=== PATIENT | male | born 1995 | race Caucasian/White ===

== ENCOUNTER 2016-07-04 20:13 | Emergency (ER) | payer OTHER, MEDICAID ==
[~2016-07-04] VITALS: Ht 177.8 cm; Wt 75.0 kg
[~2016-07-04 20:13] MED LIST: IBUP600T26 PO; METH750T2 PO
--- NOTE | 2016-07-04 21:25 | PD ---
HPI Stated Complaint: PSYCH EVAL / POPD Time Seen by Provider: 21:21 Travel History International Travel<30 days: No Contact w/Intl Traveler<30days: No History of Present Illness HPI Patient is a 20-year-old male brought in on a Foreman act. Per the report he may suicidal comments to his girlfriend. The patient states that he did say them but it was during an argument and out of anger. This was overheard by the father of his girlfriend who is also Foreman acted. They were at her parents house to get her 2-month-old son and they would not let her see him as she has not been taking her bipolar medications. He states it was not serious and was done in anger. He denies any plans or attempts. He denies a history of psychiatric disorders or suicide attempts. He denies any medical problems chronically or acute medical complaints. He vapes. Occasional social ethanol use, denies illicit drug use. History Social History Alcohol Use: No Tobacco Use: No Allergies-Medications (Allergen,Severity, Reaction): Coded Allergies: No Known Allergies (Verified , 10/30/15) Reported Meds & Prescriptions Reported Meds & Active Scripts Active Robaxin (Methocarbamol) 750 Mg Tab 750 Mg PO Q8HR PRN Ibuprofen 600 Mg Tab 600 Mg PO Q8H PRN Review of Systems General / Constitutional: No: Fever HENT: No: Headaches Cardiovascular: No: Chest Pain or Discomfort Respiratory: No: Shortness of Breath Gastrointestinal: No: Abdominal Pain Psychiatric: No: Anxiety, Depression, Suicidal Ideations, Disorder of Thought, Mood Disorder, Substance Abuse, Homicidal Ideation Physical Exam Narrative GENERAL: Well-developed and well-nourished adult male in no acute distress. SKIN: Warm and dry. Good turgor without tenting. HEAD: Normocephalic and atraumatic. EYES: PERRL bilaterally, 5mm. EOMI bilaterally. No injection or icterus present. No proptosis. Lids without edema or erythema. ENT: Buccal mucosa pink and moist. Oropharynx free of erythema, tonsillar hypertrophy, masses, swelling, asymmetry and exudates. Uvula midline and airway patent. NECK: Supple, no midline tenderness, crepitus or step-offs. Trachea midline, no JVD. No cervical or facial lymphadenopathy. CARDIOVASCULAR: Regular rate and rhythm without murmurs, rubs, clicks or gallops. Radial and posterior tibial pulses 2+ bilaterally. No pedal edema. RESPIRATORY: Clear to auscultation bilaterally with symmetrical rise and fall, no distress or use of accessory muscles. GASTROINTESTINAL: Non-tender, non-distended. Normal bowel sounds all 4 quadrants. No masses or organomegaly present. MUSCULOSKELETAL: No gait disturbances. Patient freely moving all four extremities spontaneously. Extremities without clubbing, cyanosis, or edema. No obvious deformities. NEUROLOGIC: CN II-XII grossly intact. Awake and alert. Motor grossly within normal limits. Normal speech. PSYCHIATRIC: Appropriate mood and affect; insight and judgment normal. Data Data Last Documented VS Vital Signs Date Time Temp Pulse Resp B/P Pulse Ox O2 Delivery O2 Flow Rate FiO2 07/04/16 22:03 65 18 130/84 100 Room Air Orders Complete Blood Count With Diff (07/04/16 21:14) Comprehensive Metabolic Panel (07/04/16 21:14) Drug Screen, Random Urine (07/04/16 21:14) Alcohol (Ethanol) (07/04/16 21:14) Salicylates (Aspirin) (07/04/16 21:14) Tylenol (Acetaminophen) (07/04/16 21:14) Psych Screen (07/04/16 21:14) Labs Laboratory Tests Test 07/04/16 22:20 Urine Opiates Screen NEG Urine Barbiturates Screen NEG Urine Amphetamines Screen NEG Urine Benzodiazepines Screen NEG Urine Cocaine Screen NEG Urine Cannabinoids Screen NEG MDM Medical Decision Making Medical Screen Exam Complete: Yes Emergency Medical Condition: Yes Differential Diagnosis SI versus depression versus anxiety versus bipolar disorder versus schizophrenia versus substance abuse versus mood disorder versus personality disorder versus adjustment disorder Narrative Course Patient is a 20-year-old male brought on a Foreman act after making suicidal comment to his girlfriend. She is also Foreman acted. He reports to me that they were arguing while at her parents house trying to hand picker her 2-month-old child and there was a verbal altercation between all the family. Patient states he called 911 and attempt to be able to obtain the child from the family however the father told the police about her comments and he was subsequently Foreman acted. He denies any ideation or attempts, past or present. He denies history of psychiatric disorders or any medical complaints. He states that it was stated and anger. Ordered labs and psych screening which are pending. Medically cleared pending labs, signed out to Jamaal Salmon PA-C. Diagnosis Primary Impression: Suicidal ideations Condition: Stable Jeff Stoddard III Jul 04, 2016 21:25
[2016-07-04 22:03] VITALS: BP 130/84; PULSE 65; RESP 18; O2SAT 100
[2016-07-04 22:55] LABS: AMPHETAMINE, URINE NEG (NEG); BARBITURATES, URINE NEG (NEG); COCAINE, URINE NEG (NEG)
[2016-07-04 23:36] LABS: AUTOMATED NEUTROPHIL # 5.7 TH/MM3 (1.8-7.7); BASOPHIL # 0.1 TH/MM3 (0-0.2); BASOPHIL % 0.9 % (0.0-2.0); EOSINOPHIL # 0.2 TH/MM3 (0-0.4); EOSINOPHIL % 2.5 % (0.0-4.0); HEMATOCRIT 44.4 % (39.0-51.0); HEMO FLAGS DIFF FINAL; LYMPH % 28.2 % (9.0-44.0); LYMPHOCYTE # 2.6 TH/MM3 (1.0-4.8); MEAN CORPUSCULAR HEMOGLOBIN 27.1 PG (27.0-34.0); MEAN CORPUSCULAR HGB CONC 32.3 % (32.0-36.0); MONO % 6.4 % (0.0-8.0); PLATELET COUNT 316 TH/MM3 (150-450); RED BLOOD COUNT 5.29 MIL/MM3 (4.50-5.90); RED CELL DISTRIBUTION WIDTH 12.4 % (11.6-17.2); WHITE BLOOD COUNT 9.1 TH/MM3 (4.0-11.0)
[2016-07-04 23:55] LABS: ALT (GPT) 27 U/L (9-52); ANION GAP 7 MEQ/L (5-15); AST (GOT) 18 U/L (15-39); BICARBONATE 28.4 MEQ/L (21.0-32.0); BLOOD UREA NITROGEN 7 MG/DL (7-18); CHLORIDE 106 MEQ/L (98-107); GLOMERULAR FILTRATION RATE 101 ML/MIN (>89); SODIUM (NA) 141 MEQ/L (136-145)
[2016-07-04 23:57] LABS: ALKALINE PHOSPHATASE 57 U/L (45-117); TOTAL BILIRUBIN ADULT 0.4 MG/DL (0.2-1.0)
[2016-07-04 23:59] LABS: ACETAMINOPHEN LESS THAN 2.0 MCG/ML (10.0-30.0)
[2016-07-05 02:00] VITALS: BP_SYST 100; BP_SYST 89; BP_DIAS 44; BP_DIAS 60; PULSE 50; RESP 18; O2SAT 98
[2016-07-05 06:16] VITALS: BP 99/65; PULSE 49; RESP 16; O2SAT 100
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
--- NOTE | 2016-07-12 20:53 | PD ---
Data Data Orders Complete Blood Count With Diff (07/04/16 21:14) Comprehensive Metabolic Panel (07/04/16 21:14) Drug Screen, Random Urine (07/04/16 21:14) Alcohol (Ethanol) (07/04/16 21:14) Salicylates (Aspirin) (07/04/16 21:14) Tylenol (Acetaminophen) (07/04/16 21:14) Psych Screen (07/04/16 21:14) MDM Medical Record Reviewed: Yes Supervised Visit with MARII: No Narrative Course I was asked to follow up in this patient's labs for medical clearance for psychiatric evaluation, please see previous providers notes for complete history of present illness. The lab work is unremarkable. The patient has been medically cleared. Diagnosis Primary Impression: Adjustment disorder, unspecified Additional Impressions: Suicidal ideations Medical clearance for psychiatric admission Patient Instructions: General Instructions, Stress (ED), Suicide Prevention for Adults (ED), Medical Clearance for Psychiatric Care (ED) Departure Forms: Tests/Procedures Additional Instruction: Follow up with outpatient primary care provider. Follow up with counseling/Sae Marchman Act [phone]. Return to ER if symptoms worsen. Disposition: 01 DISCHARGE HOME Condition: Stable Jamaal Salmon Jul 12, 2016 20:53
== END 2016-07-05 09:24 | disposition home or self-care (01) ==
LOC: NEPJ 20:13
DX: F91.0 Conduct disorder confined to family context (principal); R45.851 Suicidal ideations
CPT/HCPCS: 80053; 80307; 80320; 80329; 85025; 99284; G0480

== ENCOUNTER 2016-09-08 16:30 | Emergency (ER) | payer OTHER ==
[~2016-09-08] VITALS: Ht 175.3 cm; Wt 78.9 kg
[2016-09-08 16:48] VITALS: BP 121/69; PULSE 60; RESP 16; TEMP 99.1; O2SAT 99
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
== END 2016-09-08 18:30 | disposition home or self-care (01) ==
LOC: PHEFT 16:30
DX: S09.90XA Unspecified injury of head, initial encounter (principal); F07.81 Postconcussional syndrome; M54.2 Cervicalgia; V43.62XA Car passenger injured in collision with other type car in traffic accident, initial encounter; Y99.8 Other external cause status
CPT/HCPCS: 70450; 72125